=== PATIENT | male | born 1955 | race Caucasian/White ===

== ENCOUNTER 2017-02-13 11:12 | Emergency (ER) | payer OTHER ==
[~2017-02-13] VITALS: Ht 186.7 cm; Wt 107.5 kg
--- NOTE | 2017-02-13 12:46 | Diagnostic Imaging Report ---
PROCEDURE:X-RAY ABDOMEN, ACUTE SERIES COMPARISON:Chest Radiograph 07/07/2016 INDICATIONS:CONSTIPATION, BLOODY STOOLS FINDINGS: BOWEL GAS PATTERN:Non-specific bowel gas pattern. No suspicious air fluid levels on upright view. Gas is present within the colon. FREE AIR:None. CALCIFICATIONS:1 cm and 1.4 cm calcifications overlie the right renal silhouette. A 0.7 cm overlies the right pelvis. LUNGS:No focal consolidations. No evidence of pulmonary edema MEDIASTINUM:Cardiomediastinal silhouette is within normal limits. PLEURA:No pleural effusions or pneumothorax. OTHER:Multiple surgical clips overlie the mid abdomen. CONCLUSION: 1. Non-specific bowel gas pattern. 2. Two calcifications overlying the right renal silhouette may represent nonobstructing calculi. 3. A calcification overlying the right pelvis may represent a ureteral calculus which can be confirmed with CT abdomen and pelvis without contrast if indicated. 4. No acute thoracic abnormalities. Dictated by: Moreno Hill M.D. on 02/13/2017 at 12:54 Electronically approved by: Moreno Hill M.D. on 02/13/2017 at 12:54
[2017-02-13 14:20] LABS: BASOPHILS % 0.6 % (0.0-1.0); EOSINOPHILS # (AUTO) 0.1 (0.0-0.4); EOSINOPHILS % 2.2 % (0.0-6.0); HEMATOCRIT 46.8 % (38.2-49.6); HEMOGLOBIN 15.3 g/dL (14.0-18.0); LYMPHOCYTES # (AUTO) 0.9 (1.0-3.2); LYMPHOCYTES % 16.8 % (18.0-39.1); MEAN CORPUSCULAR HEMOGLOBIN 28.9 pg (28-32); MEAN CORPUSCULAR HGB CONC 32.7 g/dL (31-35); MEAN CORPUSCULAR VOLUME 88.5 fL (81-99); MONOCYTES # (AUTO) 0.8 (0.2-0.8); MONOCYTES % 15.1 % (4.4-11.3); NEUTROPHILS # (AUTO) 3.5 (2.1-6.9); NEUTROPHILS % 64.9 % (38.7-80.0); PLATELET COUNT 291 x10e3/uL (140-360); RED BLOOD COUNT 5.29 x10e6/uL (4.3-5.7); RED CELL DISTRIBUTION WIDTH 12.9 % (11.7-14.4)
[2017-02-13 14:42] LABS: ALANINE AMINOTRANSFERASE 25 IU/L (0-55); ALBUMIN 4.2 g/dL (3.5-5.0); ALBUMIN/GLOBULIN RATIO 1.2 (0.8-2.0); ALKALINE PHOSPHATASE 74 IU/L (40-150); ANION GAP 12.1 mmol/L (8-16); BLOOD UREA NITROGEN 15 mg/dL (7-26); BUN/CREATININE RATIO 15 (6-25); CALCIUM 9.6 mg/dL (8.4-10.2); CARBON DIOXIDE 25 mmol/L (22-29); CHLORIDE 108 mmol/L (98-107); CREATININE, SERUM 1.03 mg/dL (0.72-1.25); EST GLOMERULAR FILTRATION RATE > 60 ML/MIN (60-); GLUCOSE 97 mg/dL (74-118); POTASSIUM 4.1 mmol/L (3.5-5.1); SODIUM 141 mmol/L (136-145)
[2017-02-13] MEDS ORDERED: LOVASTATIN40 MG PO (16:48)
[2017-02-13 19:32] VITALS: BP 158/99
== END 2017-02-13 19:48 | disposition home or self-care (01) ==
LOC: ER 11:12
DX: R19.7 Diarrhea, unspecified (principal); E78.5 Hyperlipidemia, unspecified; Z85.118 Personal history of other malignant neoplasm of bronchus and lung; Z85.47 Personal history of malignant neoplasm of testis
CPT/HCPCS: 36415; 74022; 80053; 82270; 85025; 93005; 99283

== ENCOUNTER 2017-12-02 13:40 | Emergency (ER) | payer OTHER ==
[~2017-12-02] VITALS: Ht 186.7 cm; Wt 107.5 kg
[~2017-12-02 13:40] MED LIST: LOVASTATIN40 MG PO
[2017-12-02] MEDS ORDERED: ASPIRIN 81 MG CHEW TAB PO STA (13:42)
[2017-12-02] MEDS ORDERED: SODIUM CHLORIDE 0.9% 1000ML 1,000 ML IV STA (13:42)
[2017-12-02] MEDS ORDERED: NITROGLYCERIN 0.4 MG SUBL SL ONE (13:45)
[2017-12-02] MEDS ORDERED: ASPIRIN 81 MG CHEW TAB PO ONE (13:45)
[2017-12-02] MEDS ORDERED: NITROGLYCERIN 2% OINT 1 GM PKT ONE (13:47)
[2017-12-02] MEDS ORDERED: ASPIRIN 81 MG CHEW TAB ONE (13:47)
[2017-12-02 14:15] LABS: BASOPHILS % 0.1 % (0.0-1.0); EOSINOPHILS # (AUTO) 0.2 (0.0-0.4); EOSINOPHILS % 1.6 % (0.0-6.0); HEMATOCRIT 47.9 % (38.2-49.6); HEMOGLOBIN 15.8 g/dL (14.0-18.0); LYMPHOCYTES # (AUTO) 0.7 (1.0-3.2); LYMPHOCYTES % 4.9 % (18.0-39.1); MEAN CORPUSCULAR HEMOGLOBIN 28.8 pg (28-32); MEAN CORPUSCULAR VOLUME 87.4 fL (81-99); MONOCYTES # (AUTO) 0.7 (0.2-0.8); MONOCYTES % 5.4 % (4.4-11.3); NEUTROPHILS # (AUTO) 11.9 (2.1-6.9); NEUTROPHILS % 87.6 % (38.7-80.0); PLATELET COUNT 292 x10e3/uL (140-360); RED BLOOD COUNT 5.48 x10e6/uL (4.3-5.7)
--- NOTE | 2017-12-02 14:16 | Diagnostic Imaging Report ---
EXAMINATION: CHEST SINGLE (NOT PORTABLE) INDICATION: Chest pain. COMPARISON: None FINDINGS: TUBES and LINES: None. LUNGS: Lungs are well inflated. Lungs are clear. There is no evidence of pneumonia or pulmonary edema. PLEURA: No pleural effusion or pneumothorax. HEART AND MEDIASTINUM: The cardiomediastinal silhouette is unremarkable. BONES AND SOFT TISSUES: No acute osseous lesion. Surgical clip in the right hilar region. UPPER ABDOMEN: No free air under the diaphragm. IMPRESSION: No acute thoracic abnormality. Signed by: Dr. Saul York M.D. on 12/02/2017 2:12 PM
[2017-12-02 14:18] LABS: INR 0.87; PROTHROMBIN TIME 12.6 seconds (11.9-14.5)
[2017-12-02 14:19] LABS: PARTIAL THROMBOPLASTIN TIME 28.3 seconds (23.8-35.5)
[2017-12-02 14:26] LABS: BILIRUBIN,URINE NEGATIVE (NEGATIVE); CLARITY,URINE CLEAR (CLEAR); COLOR,URINE YELLOW (YELLOW); KETONES,URINE NEGATIVE (NEGATIVE); LEUKOCYTE ESTERASE ,URINE NEGATIVE (NEGATIVE); NITRITE,URINE NEGATIVE (NEGATIVE); PROTEIN,URINE DIPSTICK NEGATIVE (NEGATIVE); URINE UROBILINOGEN 0.2 mg/dL (0.2 - 1)
[2017-12-02 14:32] LABS: ALANINE AMINOTRANSFERASE 31 IU/L (0-55); ALBUMIN 4.2 g/dL (3.5-5.0); ALBUMIN/GLOBULIN RATIO 1.2 (0.8-2.0); ALKALINE PHOSPHATASE 64 IU/L (40-150); ANION GAP 17.5 mmol/L (8-16); BLOOD UREA NITROGEN 17 mg/dL (7-26); BUN/CREATININE RATIO 18 (6-25); CALCIUM 9.7 mg/dL (8.4-10.2); CARBON DIOXIDE 21 mmol/L (22-29); CHLORIDE 108 mmol/L (98-107); CREATINE KINASE 255 IU/L (30-200); CREATININE, SERUM 0.97 mg/dL (0.72-1.25); EST GLOMERULAR FILTRATION RATE > 60 ML/MIN (60-); GLUCOSE 156 mg/dL (74-118); LIPASE 57 U/L (8-78); POTASSIUM 4.5 mmol/L (3.5-5.1); SODIUM 142 mmol/L (136-145)
[2017-12-02 14:35] LABS: BACTERIA,URINE MODERATE /HPF
[2017-12-02 14:53] LABS: THYROID STIMULATING HORMONE 1.253 uIU/mL (0.350-4.940)
== END 2017-12-02 15:56 | disposition left against medical advice (07) ==
LOC: ER 13:40
DX: R07.89 Other chest pain (principal); E78.5 Hyperlipidemia, unspecified; Z85.47 Personal history of malignant neoplasm of testis
CPT/HCPCS: 36415; 71045; 80053; 81001; 82550; 82553; 83690; 83880; 84443; 84484; 85025; 85610; 85730; 87086; 93005; 99284

== ENCOUNTER 2019-08-18 12:45 | Emergency (ER) | payer OTHER ==
[~2019-08-18] VITALS: Ht 186.7 cm; Wt 107.5 kg
--- NOTE | 2019-08-18 14:50 | Diagnostic Imaging Report ---
TECHNIQUE: 3 views of the lumbar spine HISTORY: ^back pain ^[id number] ^[id number]. COMPARISON: None. IMPRESSION: No acute displaced fracture or dislocation. Minimal joint space narrowing at L5-S1 with minimal osteophytosis. Abdominal surgical clips. Vascular calcifications. 1.8 cm partially visualized right lateral abdominal calcification may represent a renal stone. Signed by: Chirag Vernon MD on 08/18/2019 2:46 PM
--- NOTE | 2019-08-18 15:22 | NUR ---
[employer] HERE FOR ARTERIAL DOPPLER.
--- NOTE | 2019-08-18 16:33 | Diagnostic Imaging Report ---
EXAM: Left Lower Extremity Venous Ultrasound HISTORY: ^left leg pain, look for arterial flow COMPARISON: None. TECHNIQUE: 2-D, color and spectral Doppler waveform imaging was obtained of the lower extremity common femoral, femoral, and popliteal veins. FINDINGS: Normal compressibility, waveforms and augmentation were demonstrated. No intraluminal thrombus identified. IMPRESSION: No evidence of left lower extremity deep vein thrombosis. Signed by: Chirag Vernon MD on 08/18/2019 4:29 PM
--- NOTE | 2019-08-18 16:35 | Diagnostic Imaging Report ---
EXAM: Left Lower Extremity Arterial Ultrasound HISTORY: Leg pain COMPARISON: None. TECHNIQUE: 2-D, color and spectral Doppler waveform imaging was performed. FINDINGS: The lower extremity arterial structures demonstrate triphasic flow throughout, except as noted below. No evidence of elevated velocities, except as noted below. No flow discontinuity except as noted below. The velocities below are in centimeters per second. LEFT: Common femoral artery - 96 Superficial femoral artery proximal- 67 mid- 58 distal- 47 Popliteal artery- 38 Posterior tibial artery- 53 Anterior tibial artery- 74 IMPRESSION: Normal left lower extremity triphasic waveforms without evidence of elevated velocities to suggest stenosis. No evidence of flow discontinuity. Signed by: Chirag Vernon MD on 08/18/2019 4:32 PM
--- NOTE | 2019-08-18 16:46 | Emergency Department Note ---
History of Present Illnes History of Present Illness Chief Complaint: Extremity Trauma/Pain History of Present Illness This is a 63 year old male c/o left lower back pain down to his left leg, thigh on and off, tends to get worse with walking . Historian: Patient Arrival Mode: Car Team Psychologist Required: No Onset (how long ago): day(s) (10) Radiation: Reports proximal, Reports distal Severity: moderate Duration (how long): hour(s) Progression: waxing and waning Relieving factors: none Exacerbating factors: none Treatments prior to arrival: none Past Medical/Family History Physician Review I have reviewed the patient's past medical and family history. Any updates have been documented here. Past Medical History Recent Fever: No Clinical Suspicion of Infectio: No New/Unexplained Change in Ment: No Past Medical History: Cancer, Hyperlipedemia Other Medical History: Testicular cancer (remission) Lung cancer (remission) Other Surgery: Left testicle removed d/t cancer Lymph nodes removed Right lung Lobectomy Social History Smoking Cessation: Unknown if ever smoked Counseling Performed: No Alcohol Use: None Any Illegal Drug Use: No TB Exposure/Symptoms: No Physically hurt or threatened: No (works at [employer] on [address]) Family History Family history of heart diseas: No Other Last Tetanus: unknown Any Pre-Existing Lines (PICC,: No Last Flu: Y Last Pneumovax: Y Review of Systems Review of Systems Constitutional: Reports no symptoms EENTM: Reports no symptoms Cardiovascular: Reports no symptoms Respiratory: Reports no symptoms Gastrointestinal: Reports no symptoms Genitourinary: Reports no symptoms Musculoskeletal: Reports no symptoms Integumentary: Reports no symptoms Neurological: Reports no symptoms Psychological: Reports no symptoms Endocrine: Reports no symptoms Hematological/Lymphatic: Reports no symptoms Physical Exam Related Data Allergies: Coded Allergies: prochlorperazine (Verified Allergy, Unknown, 12/02/17) Triage Vital Signs Vital Signs Date Time Temp Pulse Resp B/P (MAP) Pulse Ox O2 Delivery O2 Flow Rate FiO2 08/18/19 13:11 98.2 77 16 161/77 97 Physical Exam CONSTITUTIONAL Constitutional: Present well-developed, Present well-nourished HENT HENT: Present normocephalic, Present atraumatic, Present oropharynx clear/moist, Present nose normal HENT L/R: Present left ext ear normal, Present right ext ear normal EYES Eyes: Reports PERRL, Reports conjunctivae normal NECK Neck: Present ROM normal PULMONARY Pulmonary: Present effort normal, Present breath sounds normal CARDIOVASCULAR Cardiovascular: Present regular rhythm, Present heart sounds normal, Present capillary refill normal, Present normal rate GASTROINTESTINAL Abdominal: Present soft, Present nontender, Present bowel sounds normal GENITOURINARY Genitourinary: Present exam deferred SKIN Skin: Present warm, Present dry MUSCULOSKELETAL Musculoskeletal: Present ROM normal, Present other (no loss of hair, muscle tones intact, pulses and color look normal) NEUROLOGICAL Neurological: Present alert, Present oriented x 3, Present no gross motor or sensory deficits PSYCHOLOGICAL Psychological: Present mood/affect normal, Present judgement normal Results Imaging Imaging results reviewed: Yes Imaging Comments 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, doppler normal Assessment & Plan Medical Decision Making [facility] ddx: PVD vs DJD of the spine Assessment & Plan Final Impression: (1) Acute leg pain (2) Lower back pain Depart Disposition: HOME, SELF-CARE Last Vital Signs Date Time Temp Pulse Resp B/P (MAP) Pulse Ox O2 Delivery O2 Flow Rate FiO2 08/18/19 13:11 98.2 77 16 161/77 97 Home Meds Reported Medications Lovastatin (LOVASTATIN) 40 Mg Tablet, 40 MG PO HS THERAPEUTICALLY SUBSTITUTED WITH SIMVASTATIN 20MG 02/13/17 Physician Attestation Provider Attestation need to f/u with PCP for back pain, consider MRI of lower spine, CV doctor Roberto for furthe work up on leg pain BRADLY MARTINEZ MD Aug 18, 2019 16:46
== END 2019-08-18 16:06 | disposition home or self-care (01) ==
LOC: ER 12:45 → FSED 16:06
DX: M54.5 Low back pain (principal); M79.605 Pain in left leg; Z85.47 Personal history of malignant neoplasm of testis; E78.5 Hyperlipidemia, unspecified
CPT/HCPCS: 72100; 93926; 93971; 99283